=== PATIENT | male | born 1990 | race Asian ===

== ENCOUNTER 2021-09-04 10:47 | Emergency (ER) | payer MEDICAID ==
[~2021-09-04] VITALS: Ht 180.3 cm; Wt 86.0 kg
[2021-09-04 11:00] VITALS: BP 132/74
== END 2021-09-04 13:02 | disposition home or self-care (01) ==
LOC: EMS 10:52
DX: L30.9 Dermatitis, unspecified (principal)
CPT/HCPCS: 99283; Z7502